=== PATIENT | male | born 1945 | race Caucasian/White ===

== ENCOUNTER → 2019-10-06 | Outpatient (CLI) | payer MEDICARE ==
--- NOTE | 2019-10-06 10:24 | KCIC ---
EXAM: Leonardo scale and color Doppler renal artery sonogram. HISTORY: Hypertension. TECHNIQUE: Leonardo scale and color Doppler sonographic imaging of the kidneys and renal arteries with spectral waveform analysis was performed. COMPARISON: None. FINDINGS: The proximal renal arteries are obscured. There are normal peak systolic velocities within the mid and distal renal arteries. There are normal renal artery to aorta velocity ratios. The kidneys are normal in size. There is a 1.7 cm simple cyst within the superior right kidney. The renal veins are patent. The renal parenchyma is slightly echogenic. IMPRESSION: 1. No Doppler evidence of hemodynamically significant stenosis involving the renal arteries. The proximal renal arteries are obscured due to body habitus and bowel gas. 2. Small simple appearing right renal cyst. 3. Echogenic renal parenchyma. This can be seen with medical renal disease. Electronically signed by: Selam Alexis MD (10/06/2019 10:21 AM) [id number]
== END ==
LOC: KCIC US 09:32
PROVIDERS: ATTEND Internal Medicine Cardiovascular Disease
DX: N28.1 Cyst of kidney, acquired (principal); N28.89 Other specified disorders of kidney and ureter; I10 Essential (primary) hypertension
CPT/HCPCS: 93975